=== PATIENT | female | born 1980 | race Caucasian/White ===

== ENCOUNTER 2020-11-07 16:06 | Emergency (ER) | payer OTHER ==
[~2020-11-07] VITALS: Ht 162.6 cm; Wt 67.6 kg
[2020-11-07 16:23] VITALS: Ht 162.6 cm; Wt 67.6 kg
[2020-11-07 18:00] VITALS: BP 117/71
== END 2020-11-07 18:00 | disposition home or self-care (01) ==
LOC: ED 16:06
DX: S13.4XXA Sprain of ligaments of cervical spine, initial encounter (principal); S23.3XXA Sprain of ligaments of thoracic spine, initial encounter; S00.93XA Contusion of unspecified part of head, initial encounter; Z90.89 Acquired absence of other organs; W20.8XXA Other cause of strike by thrown, projected or falling object, initial encounter; Y93.89 Activity, other specified; Y92.89 Other specified places as the place of occurrence of the external cause; Y99.8 Other external cause status